=== PATIENT | male | born 1980 | race Caucasian/White ===

== ENCOUNTER 2023-07-24 07:25 | Inpatient (IN) | payer OTHER ==
[~2023-07-24] VITALS: Ht 175.3 cm; Wt 91.9 kg
[2023-07-24] VITALS (35 sets, daily range): BP systolic 117–198; BP diastolic 73–106; PULSE 58–89; RESP 17–23; TEMP 97.5–102.7; O2SAT 94–100
[2023-07-24] MEDS: SODIUM CHLORIDE 0.9% 1,000 ML IV ONE ×3 (07:55→09:32)
[2023-07-24 08:14] LABS: Hemoglobin 13.6 g/dL (13.5-17.5)
[2023-07-24 08:16] LABS: Hematocrit 41.7 % (41.0-53.0); Mean Corpuscular Hemoglobin 26.7 pg (28.0-32.0); Mean Corpuscular Hgb Conc. 32.5 g/dL (32.0-36.0); Mean Corpuscular Volume 82.3 fL (80.0-100.0); Red Blood Cells 5.07 10^6/uL (4.5-5.90); Red Cell Distribution Width 14.6 % (11.8-14.3)
[2023-07-24 08:18] LABS: White Blood Cell 31.9 10^3/uL (4.4-10.8)
[2023-07-24 08:19] LABS: Alanine Aminotransferase 27 U/L (7-40); Albumin 4.6 g/dL (3.2-4.8); Alkaline Phosphatase 66 U/L (46-116); Anion Gap 11 (5-15); Aspartate Aminotransferase 20 U/L (13-40); BUN/Creatinine Ratio 13.1 (10.0-20.0); Basophils % (manual) 0 (0.0-2.0); Bilirubin, Total 1.2 mg/dL (0.2-1.0); Blast Cells 0; Blood Alcohol < 3.0 mg/dL (<10); Blood Urea Nitrogen 13 mg/dL (9-23); Calcium 9.3 mg/dL (8.5-10.1); Carbon Dioxide 22 mmol/L (20-30); Chloride 106 mmol/L (98-107); Eosinophils % (manual) 0 (0-7); Glucose 134 mg/dL (74-106); Metamyelocytes % 0; Myelocytes % 0; Potassium 3.3 mmol/L (3.5-5.1); Promyelocytes % 0; Reactive Lymphocytes 0; Sodium 139 mmol/L (136-145); Total Protein 6.9 g/dL (5.7-8.2)
[2023-07-24 08:21] LABS: INR 1.19 (0.9-1.15); Partial Thromboplastin Time 27.5 SEC (24.5-34.5); Prothrombin Time 12.4 sec (9.3-11.8)
[2023-07-24 08:22] LABS: Urine Bacteria NONE SEEN /hpf (None Seen); Urine Blood Negative /uL (Negative); Urine Clarity Clear (Clear); Urine Color Yellow (Yellow); Urine Protein, UAD TRACE (Negative); Urine Specific Gravity 1.019 (1.001-1.035); Urine Urobilinogen Normal (Negative); Urine WBC 1 /hpf (0 - 3); Urine pH 7.5 (5.0-8.0)
[2023-07-24 08:34] LABS: Amphetamine Screen, Urine Neg (NEGATIVE); Barbiturate Scree,Urine Neg (NEGATIVE); Benzodiazephine Screen, Urine Neg (NEGATIVE); Cannabinoid Screen, Urine Neg (NEGATIVE); Cocaine Screen, Urine Neg (NEGATIVE); Opiate Scree,Urine Neg (NEGATIVE); Phencyclidine Screen, Urine Neg (NEGATIVE)
[2023-07-24 08:37] LABS: Band Neutrophils % (manual) 14; Lymphocytes % (manual) 6 (10.0-50.0); Monocytes % (manual) 14 (0-12); Platelet Estimate Adequate
[2023-07-24 08:40] LABS: Lactic Acid w/Reflex 2.8 mmol/L (0.4-2.0)
[2023-07-24] MEDS: cefTRIAXone 1GM/50ML D5W 50 ML IV ONE ×2 (08:52→09:30)
[2023-07-24] MEDS: metroNIDAZOLE 500MG/100ML 100 ML IV ONE ×2 (08:53→09:30)
[2023-07-24] MEDS: PANTOPRAZOLE 80 MG in SODIUM CHL 0.9% 100 ML IV ONE ×2 (09:20→11:39)
[2023-07-24] MEDS: LORazepam 2MG/ML-1ML VIAL ONE (10:21)
[2023-07-24] MEDS: LORazepam 2MG/ML-1ML VIAL IV ONE (10:21)
[2023-07-24] MEDS: ROCURONIUM 10MG/ML 10ML VIAL IV ONE ×2 (10:29→10:48)
[2023-07-24] MEDS: MIDAZOLAM DRIP 50 mg/50mL 50 ML IV SCH (10:30)
[2023-07-24] MEDS: MIDAZOLAM DRIP 50 mg/50mL 50 ML IV ONE (10:48)
[2023-07-24] MEDS: ETOMIDATE (2MG/ML) 20ML VIAL IV ONE ×2 (10:49→10:50)
[2023-07-24] MEDS ORDERED: ONDANSETRON HCL 4 MG/2 ML VIAL IV PRN (11:00)
[2023-07-24] MEDS ORDERED: VANCOMYCIN PER PHARMACY 0 MG IV SCH ×2 (11:00→17:00)
[2023-07-24] MEDS ORDERED: NOREPINEPHRINE 8 MG/250ML KIT 250 ML IV SCH (11:00)
[2023-07-24] MEDS ORDERED: ACETAMINOPHEN 325 MG TAB PO PRN (11:00)
[2023-07-24 11:03] LABS: Base Excess -7.2 mmol/L (-2.0-2.0)
[2023-07-24 11:05] LABS: COVID19 ANTIGEN SOFIA FIA NEGATIVE (NEGATIVE); Rapid Influenza A Negative (Negative); Rapid Influenza B Negative (Negative)
[2023-07-24] MEDS: FUROSEMIDE 40 MG/4 ML VIAL IV ONE (11:11)
[2023-07-24] MEDS: AZITHROMYCIN 500MG/ 250ML 250 ML IV ONE (11:12)
[2023-07-24] MEDS: LABETALOL HCL 5 MG/ML 4ML SYRINGE IV ONE (11:12)
[2023-07-24] MEDS: PANTOPRAZOLE 40mg/50ML NS AE 50 ML IV SCH (11:49)
[2023-07-24] MEDS: VANCOMYCIN 1GM/200ML 200 ML IV ONE (11:49)
[2023-07-24] MEDS: fentaNYL Drip 2500mCg/250mlNS 250 ML IV SCH (12:59)
[2023-07-24] MEDS: PROPOFOL 100 ML IV SCH (13:15)
[2023-07-24] MEDS: PROPOFOL 100 ML IV ONE (13:15)
[2023-07-24] MEDS: PIPERACILLIN-TAZOB 3.375GM 100 ML IV SCH (15:29)
[2023-07-24] MEDS ORDERED: ACYCLOVIR 10MG/KG Q8HR PER RX 0 ML IV SCH (17:00)
[2023-07-24] MEDS: DexAMETHasone INJECTION 10 MG in D5W 5% 50 ML IV SCH (17:58)
[2023-07-24] MEDS: FUROSEMIDE 20 MG/2 ML VIAL IV SCH (18:04)
[2023-07-24] MEDS: ACYCLOVIR SOD 50MG/ML 750 MG in SODIUM CHL 0.9% 250 ML IV SCH (18:30)
[2023-07-24] MEDS: ACETAMINOPHEN IV 1000 MG/100ML (10MG/ML) IV ONE (18:33)
[2023-07-24] MEDS: ACETAMINOPHEN IV 100 ML IV ONE (18:34)
[2023-07-24] MEDS ORDERED: LORazepam 2MG/ML-1ML VIAL IV PRN (20:15)
[2023-07-24] MEDS: VANCOMYCIN 1GM/200ML 200 ML IV SCH (20:24)
[2023-07-24] MEDS: cefTRIAXone 2GM/50ML D5W 50 ML IV SCH (20:35)
[2023-07-24] MEDS: POTASSIUM CHL 20MEQ/100ML 100 ML IV SCH (21:14)
[2023-07-24] MEDS: MAGNESIUM SULFATE 1GM/100ML 100 ML IV ONE (21:45)
[2023-07-24] MEDS: levETIRAcetam 1000 mg/100ml 100 ML IV ONE (22:39)
[2023-07-24] MEDS: POTASSIUM PHOSPHATE 44 MEQ in D5W 5% 250 ML IV ONE (23:05)
[2023-07-25] VITALS (76 sets, daily range): BP systolic 97–132; BP diastolic 55–79; PULSE 60–124; RESP 15–22; TEMP 96.8–99.3; O2SAT 100
[2023-07-25] MEDS: IPRATROPIUM BROM 0.5 MG/2.5ML INH SOL NEB SCH (00:53)
[2023-07-25] MEDS: ALBUTEROL SULF 2.5 MG/0.5ML(0.5%) NEB SOLN NEB SCH (00:54)
[2023-07-25 01:36] LABS: Magnesium 2.6 mg/dL (1.6-2.6)
[2023-07-25 02:46] LABS: Rapid Strep A Screen-Throat Positive
[2023-07-25 04:54] LABS: Hematocrit 41.9 % (41.0-53.0); Hemoglobin 13.6 g/dL (13.5-17.5); Mean Corpuscular Hemoglobin 27.4 pg (28.0-32.0); Mean Corpuscular Hgb Conc. 32.5 g/dL (32.0-36.0); Mean Corpuscular Volume 84.3 fL (80.0-100.0); Red Blood Cells 4.97 10^6/uL (4.5-5.90); Red Cell Distribution Width 14.9 % (11.8-14.3); White Blood Cell 29.7 10^3/uL (4.4-10.8)
[2023-07-25 05:01] LABS: Basophils % (manual) 0 (0.0-2.0); Blast Cells 0; Eosinophils % (manual) 0 (0-7); Metamyelocytes % 0; Myelocytes % 0; Promyelocytes % 0; Reactive Lymphocytes 0
[2023-07-25 05:14] LABS: Alanine Aminotransferase 18 U/L (7-40); Albumin 4.3 g/dL (3.2-4.8); Alkaline Phosphatase 56 U/L (46-116); Anion Gap 9 (5-15); Aspartate Aminotransferase 21 U/L (13-40); BUN/Creatinine Ratio 8.1 (10.0-20.0); Blood Urea Nitrogen 7 mg/dL (9-23); Calcium 8.3 mg/dL (8.7-10.4); Carbon Dioxide 20 mmol/L (20-30); Chloride 105 mmol/L (98-107); Glucose 111 mg/dL (74-106); Potassium 4.6 mmol/L (3.5-5.1)
[2023-07-25 05:15] LABS: Bilirubin, Total 0.6 mg/dL (0.2-1.0); Sodium 134 mmol/L (136-145); Total Protein 7.6 g/dL (5.7-8.2)
[2023-07-25 05:49] LABS: Band Neutrophils % (manual) 22; Lymphocytes % (manual) 6 (10.0-50.0); Monocytes % (manual) 5 (0-12); Platelet Estimate Adequate
[2023-07-25 07:06] LABS: RPR Non Reactive (Non Reactive)
[2023-07-25 07:06] LABS: Base Excess -6.3 mmol/L (-2.0-2.0)
[2023-07-25] MEDS: levETIRAcetam 500 mg/100ml 100 ML IV SCH (11:48)
[2023-07-25] MEDS ORDERED: NOREPINEPHRINE 8 MG/250ML KIT 250 ML IV SCH (19:45)
== END 2023-07-25 23:22 | disposition short-term general hospital (02) | DRG 871 ==
LOC: EDBD 07:25 → ER 07:25 → EEVIPCON 07:25 → TELE 11:06 → ICU WEST 16:20
PROVIDERS: ADMIT Nurse Practitioner Family; ATTEND Nurse Practitioner Family
PROC: 02HV33Z Insertion of Infusion Device into Superior Vena Cava, Percutaneous Approach (ICD-10-PCS; principal; 2023-07-24)
PROC: B548ZZA Ultrasonography of Superior Vena Cava, Guidance (ICD-10-PCS; 2023-07-24)
PROC: 0BH17EZ Insertion of Endotracheal Airway into Trachea, Via Natural or Artificial Opening (ICD-10-PCS; 2023-07-24)
PROC: 5A1945Z Respiratory Ventilation, 24-96 Consecutive Hours (ICD-10-PCS; 2023-07-24)
DX: A41.9 Sepsis, unspecified organism (principal); G03.9 Meningitis, unspecified; J96.01 Acute respiratory failure with hypoxia; G92.8 Other toxic encephalopathy; K92.2 Gastrointestinal hemorrhage, unspecified; J81.1 Chronic pulmonary edema; I16.1 Hypertensive emergency; E87.21 Acute metabolic acidosis; I50.20 Unspecified systolic (congestive) heart failure; R65.20 Severe sepsis without septic shock; E87.5 Hyperkalemia; H70.90 Unspecified mastoiditis, unspecified ear; J32.9 Chronic sinusitis, unspecified; Z20.822 Contact with and (suspected) exposure to COVID-19; E87.6 Hypokalemia; K21.9 Gastro-esophageal reflux disease without esophagitis; F17.200 Nicotine dependence, unspecified, uncomplicated; E66.9 Obesity, unspecified; Z82.49 Family history of ischemic heart disease and other diseases of the circulatory system; Z83.3 Family history of diabetes mellitus; Z88.0 Allergy status to penicillin; Z68.30 Body mass index [BMI] 30.0-30.9, adult
CPT/HCPCS: 31500; 36415; 36556; 36600; 70450; 70553; 71045; 74176; 80053; 80202; 80307; 80320; 81001; 82805; 83605; 83735; 83880; 84100; 84132; 84484; 85007; 85027; 85379; 85610; 85730; 86592; 86703; 86850; 86900; 86901; 87040; 87070; 87077; 87081; 87086; 87186; 87205; 87426; 87804; 87880; 93005; 93306; 93970; 94002; 94003; 94640; 99291; C9113; G0378; J0131; J1100; J2250; J2543; J2704; J3480; J3490; J7060